=== PATIENT | female | born 1960 | race Caucasian/White ===

== ENCOUNTER → 2017-12-16 | Outpatient (CLI) | payer OTHER ==
--- NOTE | 2017-12-16 17:35 | DIAGNOSTIC IMAGING REPORT ---
VENOUS DOPP LOWER EXT UNILAT CLINICAL HISTORY: 57 years-old Female presenting with LEFT LEG PAIN AND SWELLING R/O DVT, history of deep venous thrombosis in the left lower terminate 2 years ago, no longer on blood thinners. TECHNIQUE: Real-time grayscale and color and spectral Doppler ultrasound imaging of the veins of the left lower extremity was performed. Compression and augmentation were also utilized. COMPARISON: None. FINDINGS: Left: Common femoral vein: Patent. Greater saphenous vein: Patent. Deep femoral vein: Patent. Femoral vein: Patent. Popliteal vein: Echogenic thin linear defects in the distal left popliteal vein. Calf veins: Limited visualization. Other: Left popliteal cysts noted.. IMPRESSION: No evidence of deep venous thrombosis. Thin linear echogenic defects in the distal left popliteal vein may represent chronic scarring/webs from prior thrombus. Electronically signed by: Fabrizio Wall M.D. 12/16/2017 5:34 PM Dictated Date/Time: 12/16/2017 5:32 PM
== END | disposition home or self-care (01) ==
LOC: C.ULTR 16:59
PROVIDERS: ATTEND Physician Assistant
DX: M79.605 Pain in left leg (principal); M79.89 Other specified soft tissue disorders

== ENCOUNTER → 2017-12-22 | Day surgery (SDC) | payer OTHER ==
[2017-12-21 10:47] VITALS: Ht 160.7 cm; Wt 91.8 kg
[~2017-12-22] VITALS: Ht 160.7 cm; Wt 91.8 kg
[~2017-12-22] MED LIST: ADVIN25/60 INH; ALEN70TA4 PO; ATROPINE SULFATE 0.1 MG/ML 5ML SYR IV PRN; ATV/1 PO; BACITRACIN 50000 UNIT VIAL ONE; BUPIVACAINE/EPINEPHRINE 0.5% MPF 1:200,000 30 ML VIAL ONE; CEFAZOLIN SOD 2000MG/15 ML IV PUSH IV ONE; DEXAMETHASONE SOD INJ 4 MG/ML VIAL ONE; EpHEDrine SULFATE INJ 50 MG/ML AMP IV PRN; FAMO20TA11 PO; FENTANYL CITRATE INJ 50 MCG/1 ML 2 ML VIAL IV PRN; FENTANYL CITRATE INJ 50 MCG/1 ML 2 ML VIAL ONE; FLUT50SP45 NAE; GABA1CAP5 PO; LACTATED RINGER'S 1000ML 1,000 ML IV SCH; LIDOCAINE HCL 2% 2 ML VIAL (20MG/ML) ONE; MIDAZOLAM HCL 1 MG/ML 2ML VIAL ONE; MONT1TAB5 PO; MoRPHine SULFATE 2 MG/ML CARP IV PRN; NURSING VERBAL MED ORDER ONE; ONDANSETRON INJ 2 MG/ML 2 ML VIAL IV PRN; ONDANSETRON INJ 2 MG/ML 2 ML VIAL ONE; OXYC-59 PO; OXYCODONE/ACETAMINOPHEN 5-325 TAB PO PRN; OXYM10TA6 PO; POLY1POW2 PO; PROPOFOL IV EMULSION 10 MG/ML 20 ML VIAL IV ONE; ROPIVACAINE 0.5% 5 MG/ML 30 ML VIAL ONE; TRIA75TA53 PO; VITAMIN D2 PO; VNTHFA/IN INH
--- NOTE | 2017-12-22 11:20 | HISTORY & PHYSICAL EXAMINATION ---
DATE OF ADMISSION: 12/22/2017 CHIEF COMPLAINT: Right distal radius fracture. HISTORY OF PRESENT ILLNESS: The patient is a 57-year-old white female presented with right distal radius fracture after a fall onto her right wrist. PAST MEDICAL HISTORY: Diverticulosis, osteoporosis, history of pulmonary embolism. PAST SURGICAL HISTORY: Appendectomy, bladder surgery, bowel surgery, carpal tunnel release, gastric bypass, hysterectomy, cholecystectomy, left shoulder replacement, meniscus reconstruction, spinal fusion and a tubal ligation. ALLERGIES: ASPIRIN, AUGMENTIN, MORPHINE AND NSAIDS. CURRENT MEDICATIONS: Albuterol 2 puffs 4 times a day as needed, Fosamax 70 mg 1 tablet once a week, Xanax 1 mg by mouth 3 times a day as needed, baclofen 10 mg 1 tablet as needed 3 times a day, Os-Jim 1 tablet twice daily, Questran 4 grams oral powder, take 4 grams by mouth daily, vitamin D 50,000 units 1 capsule 2 times per week, Pepcid 20 mg 1 tablet daily, Flonase 2 sprays in each nostril, Advair Diskus 1 puff 2 times daily, Neurontin 400 mg 1 capsule 4 times daily, DuoNeb take 3 mL by nebulization 4 times daily, Singulair 10 mg 1 tablet daily, Cortisporin 2 drops into each ear 3 times daily as needed, Prilosec 20 mg 1 tablet daily, Ditropan XL 10 mg 1 tablet daily, Percocet 10/325 mg 1 tablet q. 8 hours as needed, Opana ER 10 mg 1 tablet b.i.d., GlycoLax as needed, Retin-A topical cream apply as needed, Maxzide 75/50 mg 1 tablet daily, Tessalon 200 mg tablets 1 capsule 3 times a day as needed. SOCIAL HISTORY: The patient does currently smoke daily. No alcohol use. FAMILY HISTORY: Heart disease, stroke, hypertension, diabetes, thyroid disease. REVIEW OF SYSTEMS: No chest pain or palpitations. Respiratory, she does have positive wheezing and cough. PHYSICAL EXAMINATION: GENERAL: She is alert and oriented x3. CARDIOVASCULAR: Normal rate and regular rhythm. RESPIRATORY: Positive for wheezing. MUSCULOSKELETAL: Right wrist distal radius fracture with swelling and pain. Normal pulses. ASSESSMENT: Right distal radius fracture. PLAN: The patient will be set up for a right ORIF distal radius fracture with Dr. Maza.
[2017-12-22 14:46] VITALS: BP 138/90; PULSE 85; TEMP 37.1; O2SAT 95
--- NOTE | 2017-12-22 17:31 | History & Physical Bridge Note ---
H&P Re-Evaluation Bridge Note: I have examined the patient, reviewed the History & Physical and in the interval since the performance of the History & Physical I have noted the following changes of clinical significance: No changes noted I saw her in the preoperative holding area. We discussed risk benefits reasonable outcomes and expectations of surgery. We'll plan for open reduction internal fixation of right distal radius fracture
--- NOTE | 2017-12-22 19:36 | [facility] Post Operative Brief Note ---
Immediate Operative Summary Operative Date Dec 22, 2017. Pre-Operative Diagnosis right distal radius fracture Post-Operative Diagnosis right distal radius fracture Procedure(s) Performed ORIF distal radius fracture Surgeon Dr. Urban Maza Hat [employer] Cap Parts Cutter Hand Surgeon(s) Savannah Duncan Estimated Blood Loss 10 Findings Consistent with Post-Op Diagnosis Specimens none per surgeon Drains None Anesthesia Type General Regional Complication(s) none
--- NOTE | 2017-12-22 19:39 | DIAGNOSTIC IMAGING REPORT ---
INTRAOPERATIVE RADIOGRAPHS CLINICAL HISTORY: Open reduction and internal fixation of the right wrist Fluoroscopy time: 17 seconds. FINDINGS: 3 spot fluoroscopic views of the right wrist are presented. There has been buttress plate fixation of an impacted and comminuted fracture of the distal radial metaphysis. Near-anatomic alignment has been restored. Numerous cortical lag screw transfix the buttress plate. The orthopedic hardware appears intact. Overlying soft tissue edema is noted. IMPRESSION: Intraoperative images from open reduction and internal fixation of the distal radius as above. Electronically signed by: Fabian Caceres M.D. 12/22/2017 7:38 PM Dictated Date/Time: 12/22/2017 7:37 PM
--- NOTE | 2017-12-22 19:53 | Discharge Instructions ---
Discharge Instructions Date of Service Dec 22, 2017. Admission Reason for Admission: Right Wrist Distal Radius Fracture Discharge Discharge Diagnosis / Problem: wrist fracture Discharge Goals Goal(s): Decrease discomfort, Improve function Activity Recommendations Activity Limitations: as noted below Lifting Limitations: no more than 5 pounds Exercise/Sports Limitations: rest today Shower/Bathe: keep incision dry Driving or Machine Use: no driving . Instructions / Follow-Up Instructions / Follow-Up [facility] : Hand /Wrist Instr. ACTIVITY RECOMMENDATIONS: Avoid lifting anything until your first post-operative visit. Keep your hand elevated above the level of your heart at all times. Elbow should be above the level of the heart, and hand kept above the elbow. ~ You may use a sling if necessary. Ice the affected extremity a minimum of 3-4 times a day, 20 minutes each time. SPECIAL CARE INSTRUCTIONS: * Your bandage should be left in place until seen in the office. * Some drainage onto the dressing may occur.~ This is normal. * If the bandage feels excessively tight, you may loosen the elastic bandage.~ Then call the physician's office for further instructions. * You should move your fingers regularly, making a fist and extending them, unless otherwise instructed. SPECIAL PRECAUTIONS: * If you notice increased drainage, fever over 101 degrees F. or severe, unremitting pain, call your physician/office at . * You may have been prescribed pain medication.~ If you experience nausea and/ or skin rash, discontinue this medication and contact our office for an alternative medication. Pain Medication: a. You will be prescribed pain medication upon discharge that should last till your first post-operative appointment. b. You may also take Advil, Ibuprofen or Aleve between medication doses if you do not have any contraindication to taking them. c. You may also take Advil, Ibuprofen, Aleve or Tylenol in place of your pain medication if the pain is tolerable. FOLLOW UP VISIT: If appointment is not already scheduled: Please call [facility] to make a follow-up appointment after your surgery at . Follow up appointment with Dr. Maza or his PA: 10/14 days Current Hospital Diet Patient's current hospital diet: Regular Diet Discharge Diet Recommended Diet: Regular Diet Procedures Procedures Performed: ORIF distal radius fracture Pending Studies Studies pending at discharge: no Medical Emergencies . Who to Call and When: Medical Emergencies: If at any time you feel your situation is an emergency, please call 911 immediately. . Non-Emergent Contact Non-Emergency issues call your: Primary Care Provider Call Non-Emergent contact if: temperature is above 101.5 . "Provider Documentation" section prepared by Don Napoles. . VTE Core Measure Inpt VTE Proph given/why not?: Treatment not indicated
--- NOTE | 2017-12-22 19:55 | Anesthesiology Progress Note ---
Anesthesia Post Op Note Date & Time Dec 22, 2017 at 19:55 Vital Signs Pain Intensity: 8 Vital Signs Past 12 Hours Date Time Temp Pulse Resp B/P (MAP) Pulse Ox O2 Delivery O2 Flow Rate FiO2 12/22/17 14:46 37.1 85 18 138/90 (106) 95 Room Air Notes Mental Status: alert / awake / arousable, participated in evaluation Pt Amnestic to Procedure: Yes Nausea / Vomiting: adequately controlled Pain: adequately controlled Airway Patency, RR, SpO2: stable & adequate BP & HR: stable & adequate Hydration State: stable & adequate Anesthetic Complications: no major complications apparent
[2017-12-22 20:25] VITALS: BP 127/87; PULSE 64; TEMP 36.3; O2SAT 94
[2017-12-22 21:10] VITALS: BP 136/89; PULSE 78; TEMP 36.3; O2SAT 96
--- NOTE | 2017-12-23 01:10 | OPERATIVE REPORT ---
DATE OF OPERATION: 12/22/2017 PREOPERATIVE DIAGNOSIS: Right volar Moe fracture. POSTOPERATIVE DIAGNOSIS: Same. PROCEDURE: Right ORIF volar Moe fracture. SURGEON: Derick Maza MD. PATTERNMAKER PLASTER: Savannah Jones PA-C, who was necessary for prepping, draping, retraction, exposure and closure. INDICATIONS: This is a 57-year-old female with signs of volar Moe fracture. She presents with a displaced fracture with metaphyseal comminution. She presents for ORIF. The risks and benefits have been discussed including, but not limited to, risk of infection, nerve injury, stiffness, loss of motion, failure to improve, etc. Reasonable outcomes and options of treatment were discussed. An explanation of appropriate alternatives to the procedure that may be advantageous were discussed and their risks and benefits, as well as the risks and benefits of not proceeding with treatment. I offered to answer any additional inquiries concerning the treatment involved. All the patient's questions were answered. The patient is agreeable, understanding of the treatment plan and alternatives, and wishes to proceed with the treatment plan. DESCRIPTION OF PROCEDURE: I made a longitudinal incision over the FCR tendon. Dissection was carried down through the skin and subcutaneous tissue. The FCR tendon sheath was sharply incised and the C-arm was swept in an ulnar direction. The base of the sheath was incised and the FPL was swept in ulnar direction as well. The pronator was identified and this was taken off with Bovie electrocautery. The fracture was identified. There was a large metaphyseal comminuted piece and there was volar displacement of the fracture. I performed direct reduction maneuver with longitudinal traction and direct pressure. This did result in good alignment of the distal radius. I placed a Biomet cross lock plate. I placed the oblong screw first and subsequently placed screws in a distal fashion. During the procedure, the mini C-arm broke and we transferred to using the large C-arm. Screws were placed distally in a combination of locking and nonlocking fashion with care taken to avoid intraarticular penetration. I placed all the screws proximally in a combination of locking and nonlocking fashion. This resulted in good alignment and stability of the distal radius. Incision was irrigated. Pronator was closed with 2-0 Vicryl. Tourniquet was let down. Hemostasis was obtained with bipolar electrocautery. The subcutaneous layer was closed with 4-0 Monocryl. Skin was closed with a running 4-0 Prolene stitch in a subcuticular fashion. I checked the distal radial ulnar joint and this did show laxity and subluxability, particularly in neutral. The DRUJ was stable in supination. I elected to place a sugar-tong cast with the arm in supination. Postoperative plan will be 6 weeks of sugar-tong versus Aurora cast in supination. I attest to the content of the Intraoperative Record and any orders documented therein. Any exception s are noted below.
== END | disposition home or self-care (01) ==
LOC: C.ACU 14:00
PROVIDERS: ATTEND Orthopaedic Surgery
DX: S52.561A Barton's fracture of right radius, initial encounter for closed fracture (principal); W19.XXXA Unspecified fall, initial encounter; J44.9 Chronic obstructive pulmonary disease, unspecified; G35 Multiple sclerosis; Z86.711 Personal history of pulmonary embolism; Z98.890 Other specified postprocedural states; Z98.84 Bariatric surgery status; Z90.710 Acquired absence of both cervix and uterus; Z90.49 Acquired absence of other specified parts of digestive tract; Z96.698 Presence of other orthopedic joint implants; Z98.51 Tubal ligation status; Z90.89 Acquired absence of other organs; E66.9 Obesity, unspecified; Z68.35 Body mass index [BMI] 35.0-35.9, adult; Z88.6 Allergy status to analgesic agent; Z82.49 Family history of ischemic heart disease and other diseases of the circulatory system; Z82.3 Family history of stroke; Z83.3 Family history of diabetes mellitus